=== PATIENT | male | born 1985 | race Caucasian/White ===

== ENCOUNTER 2019-08-31 14:22 | Emergency (ER) | payer MEDICAID ==
[~2019-08-31] VITALS: Ht 188 cm; Wt 142.9 kg
[2019-08-31 14:24] VITALS: BP_SYST 152
[2019-08-31 15:38] LABS: BASOPHILS % (AUTO) 0.3 % (0.0-2.0); EOSINOPHILS # (AUTO) 0.2 K/uL (0.0-0.4); EOSINOPHILS % (AUTO) 2.2 % (0.0-4.0); HEMATOCRIT 38.3 % (36-54); HEMOGLOBIN 13.3 g/dL (14.0-18.0); LYMPHOCYTES # (AUTO) 1.6 K/uL (1.0-5.5); LYMPHOCYTES % (AUTO) 22.9 % (20.5-51.5); MEAN CORPUSCULAR HEMOGLOBIN 28 pg (27-31); MEAN CORPUSCULAR HGB CONC 35 % (32-36); MEAN CORPUSCULAR VOLUME 82 fL (79.0-98.0); MONOCYTES # (AUTO) 0.5 K/uL (0.0-1.0); MONOCYTES % (AUTO) 7.2 % (1.7-9.3); NEUTROPHILS # (AUTO) 4.7 K/uL (1.8-7.7); NEUTROPHILS % (AUTO) 67.4 % (40.0-70.0); PLATELET COUNT (AUTO) 245 K/uL (130-430); RED BLOOD CELL COUNT(AUTO) 4.68 MIL/uL (4.2-6.2); RED CELL DISTRIBUTION WIDTH 13.6 % (9.0-15.0)
[2019-08-31 15:46] LABS: CALCIUM 9.1 mg/dL (8.4-11.0); CREATININE 0.92 mg/dL (0.55-1.30); POTASSIUM 3.7 mmol/L (3.5-5.1)
[2019-08-31 15:52] LABS: ALBUMIN 3.6 g/dL (3.4-4.8); TOTAL BILIRUBIN 0.2 mg/dL (0.0-1.0)
[2019-08-31] MEDS: PANTOPRAZOLE SODIUM 40 MG/VIAL (PROTONIX) IVP ONE (16:13)
[2019-08-31] MEDS: NACL 0.9% 1,000 ML IV ONE (16:14)
[2019-08-31] MEDS: MORPHINE 2 MG/ML INJ. SYRINGE IVP ONE (16:15)
[2019-08-31] MEDS: ONDANSETRON HCL 4 MG/2 ML VIAL IVP ONE ×2 (16:16)
[2019-08-31 16:27] VITALS: BP_SYST 142
== END 2019-08-31 16:25 | disposition home or self-care (01) ==
LOC: SED 14:22
DX: R10.11 Right upper quadrant pain (principal); R11.2 Nausea with vomiting, unspecified; R19.7 Diarrhea, unspecified; Z88.6 Allergy status to analgesic agent; Z90.49 Acquired absence of other specified parts of digestive tract
CPT/HCPCS: 36415; 74021; 80053; 83690; 85025; 96361; 96374; 96375; 99284; C9113; J2270; J2405; J7030

== ENCOUNTER 2019-09-01 01:41 | Emergency (ER) | payer MEDICAID ==
[~2019-09-01] VITALS: Ht 188 cm; Wt 158.8 kg
--- NOTE | 2019-09-01 01:44 | NUR ---
Patient to ER bed 8 to gown for evaluation. Side rails up.
[2019-09-01 01:45] VITALS: BP_SYST 146
--- NOTE | 2019-09-01 01:47 | NUR ---
Correction: Patient was seen in ED on 08/31 at 1600
--- NOTE | 2019-09-01 01:47 | NUR ---
Patient BIB friend with a C/O of nausea, vomiting, and pain since 08/31 at 1600. Pt was admitted in ED for vomiting on 08/31 at 1600. Pt states that he received Toradol and Zofran but has vomited x3 since discharge. Pt C/O pain in upper right abdomen 07/05. Per patient no other injuries/complaints or noted. Addendum: 09/01/19 at 0208 by MARIANNE Correction: Patient was prescribed Tramadol, not Toradol.
--- NOTE | 2019-09-01 02:07 | NUR ---
ER Dr. Saravia at bedside examining patient.
[2019-09-01] MEDS ORDERED: NACL 0.9% 1,000 ML IV ONE (02:13)
[2019-09-01] MEDS ORDERED: ONDANSETRON HCL 4 MG/2 ML VIAL IVP ONE (02:15)
[2019-09-01] MEDS ORDERED: MORPHINE 4 MG/ML INJ. SYRINGE IVP ONE (02:15)
[2019-09-01 02:51] LABS: BASOPHILS # (AUTO) 0.1 K/uL (0.0-0.2); BASOPHILS % (AUTO) 0.9 % (0.0-2.0); EOSINOPHILS # (AUTO) 0.2 K/uL (0.0-0.4); EOSINOPHILS % (AUTO) 2.8 % (0.0-4.0); HEMOGLOBIN 12.5 g/dL (14.0-18.0); LYMPHOCYTES # (AUTO) 2.2 K/uL (1.0-5.5); LYMPHOCYTES % (AUTO) 25.8 % (20.5-51.5); MEAN CORPUSCULAR HEMOGLOBIN 28 pg (27-31); MEAN CORPUSCULAR HGB CONC 35 % (32-36); MEAN CORPUSCULAR VOLUME 82 fL (79.0-98.0); MONOCYTES # (AUTO) 0.6 K/uL (0.0-1.0); MONOCYTES % (AUTO) 6.8 % (1.7-9.3); NEUTROPHILS # (AUTO) 5.3 K/uL (1.8-7.7); NEUTROPHILS % (AUTO) 63.7 % (40.0-70.0); PLATELET COUNT (AUTO) 241 K/uL (130-430); RED CELL DISTRIBUTION WIDTH 13.2 % (9.0-15.0); WHITE BLOOD COUNT (AUTO) 8.4 K/uL (4.8-10.8)
[2019-09-01 02:58] LABS: BILIRUBIN,URINE NEGATIVE (NEGATIVE); BLOOD, URINE 2+ (NEGATIVE); CLARITY/URINE CLEAR (CLEAR); COLOR,URINE YELLOW (YELLOW); GLUCOSE,URINE NEGATIVE (NEGATIVE); KETONES,URINE NEGATIVE (NEGATIVE); LEUKOCYTE ESTERASE ,URINE NEGATIVE (NEGATIVE); NITRITE, URINE NEGATIVE (NEGATIVE); PH,URINE 6.5 (5.0-8.0); PROTEIN URINE NEGATIVE (NEGATIVE); UROBILINOGEN,URINE 0.2 (0.2-1.0)
[2019-09-01 03:05] LABS: CALCIUM 8.8 mg/dL (8.4-11.0); CREATININE 0.98 mg/dL (0.55-1.30); POTASSIUM 3.7 mmol/L (3.5-5.1)
[2019-09-01 03:08] LABS: PROTHROMBIN TIME 9.7 SECS (9.5-12.5)
[2019-09-01 03:10] LABS: BACTERIA,URINE FEW /HPF (None Seen); RBC,URINE 50-80 /HPF (0-3); WBC,URINE 0-3 /HPF (0-3)
[2019-09-01 03:12] LABS: ALBUMIN 3.7 g/dL (3.4-4.8); TOTAL BILIRUBIN 0.1 mg/dL (0.0-1.0)
[2019-09-01] MEDS ORDERED: MORPHINE 2 MG/ML INJ. SYRINGE IVP ONE ×2 (04:30→05:15)
[2019-09-01] MEDS ORDERED: MAG HYDROX/AL HYDROX/SIMETH 30 ML, DICYCLOMINE HCL 20 MG, LIDOCAINE VISCOUS 2% 15ML (PO... PO ONE ×3 (04:45)
--- NOTE | 2019-09-01 06:03 | NUR ---
Note jori in EDM - 09/01/19 at 0613 by [email or web address] Patient stated his ride was here. No family/friend was see. Informed patient that he will need to wait four hours before being discharged due to having narcotics in his system. Pt verbalized understanding. IV to right hand was D/C.
--- NOTE | 2019-09-01 06:03 | NUR ---
Patient stated his ride was here. No family/friend was seen. Informed patient that he will need to wait four hours before being discharged due to having narcotics in his system. Pt verbalized understanding. IV to right hand was D/C.
--- NOTE | 2019-09-01 06:11 | NUR ---
Patient came to nurse station and stated his aunt will be picking up him after she drops off son at work. ETA is approximately 40 minutes.
--- NOTE | 2019-09-01 07:12 | NUR ---
Report given to ASLVADOR Lloyd. All care endorsed.
--- NOTE | 2019-09-01 07:15 | NUR ---
Patient given written and verbal discharge instructions and verbalizes understanding. ER MD discussed with patient the results and treatment provided. Patient in stable condition. ID arm band removed. IV catheter removed intact and dressing applied, no active bleeding. Rx of Zofran given. Patient educated on pain management and to follow up with PMD. Pain Scale 0. Opportunity for questions provided and answered. Medication side effect fact sheet provided.
[2019-09-01 07:17] VITALS: BP_SYST 120
--- NOTE | 2019-09-01 07:17 | NUR ---
Patient states his aunt is stuck in traffic and states he will just walk to his aunt's house. Pt is aware and verbalized understanding of ramifications of driving under the influence. Pt was escorted out of property.
== END 2019-09-01 07:15 | disposition home or self-care (01) ==
LOC: SED 01:41
DX: K29.70 Gastritis, unspecified, without bleeding (principal); Z88.8 Allergy status to other drugs, medicaments and biological substances
CPT/HCPCS: 36415; 74176; 80053; 81000; 82150; 83690; 85025; 85610; 96361; 96374; 96375; 96376; 99284; J2001; J2270 ×2; J2405; J7030